=== PATIENT | male | born 1960 | race Caucasian/White ===

== ENCOUNTER 2024-12-18 12:26 | Outpatient (CLI) | payer MEDICARE, SELFPAY ==
--- NOTE | ~2024-12-18 | PE_ITS ---
EXAMINATION: PET_PETPSMAST_PT DATE: 12/18/2024 15:25 INDICATION: Prostate cancer TECHNIQUE: 4.576 mCi of Illucix Ga-68([id number]) was administered i.v. Low dose computed nhan graphy (CT) images were acquired from the base of the brain to the base of the brain to the proximal thighs for attenuation correction and anatomic localization. Positron emission tomography (PET) image s were acquired in the same distribution beginning 83 minutes after injection. Images including fused PET/CT images were reconstructed in axial, coronal, and sagittal planes. Automated exposure control technique was employed. The dose-length product was 1210.15mGy-cm. 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 Typical pattern of symmetric physiologic increased activity in the lacrimal, parotid and submandibular glands as well as along the mucosa of the nasal and oral cavities, pharynx and hypopharynx. No pathologically enlarged cervical lymphadenopathy or suspicious foci of increased uptake in the visualized head or neck. Chest: Mild dependent atelectasis in bilateral lower lobes. Mild emphysema. No suspicious pulmonary nodules, pleural effusion or pneumothorax. Heart size is normal. Small of atherosclerotic coronary artery mike cific location. No pericardial effusion. There is a small localized bulge along the inferolateral mar gin of the ascending portion of the aortic arch at the level of the takeoff of the left subclavian ar tara which extend peripheral to curvilinear atherosclerotic calcification which suggests a penetratin g atherosclerotic ulcer. No pathologically enlarged or PSMA avid thoracic lymphadenopathy. Abdomen/pelvis/proximal thighs: Physiologic renal accumulation and excretion of activity in the kidneys, bladder and along portions o f ureters. Prostatomegaly measuring 5.0 x 3.6 cm. There are couple foci of increased PSA may uptake i n the prostate the larger and more intensely PSM avid with maximal SUV of 29.3 is located slightly an terior and to the left of the center of the inferior prostate and the smaller and less intensely avid with maximal SUV of 27.1 positioned more cephalad at the left posterior margin of the prostate. Norm al degree and slightly heterogenous pattern of increased uptake throughout the liver and spleen witho ut radiologic correlate or dominant PSMA avid lesion. Several small calcified gallstones along the de pendent wall of the normal-appearing gallbladder. The pancreas and bilateral adrenal glands are ondina l. Moderate uptake scattered throughout the bowels with typical duodenal and proximal jejunal predomi nance and without radiologic correlate, also likely physiologic. No other abnormal foci of increased uptake or pathologically enlarged lymphadenopathy in the abdomen, pelvis or proximal thighs. Musculoskeletal: Severe degenerative disc disease at L5-S1. Otherwise mild scattered degenerative skeletal changes. No suspicious lytic, blastic or abnormally PSMA avid bone lesions. IMPRESSION: 1. Couple small regions of increased activity at the enlarged prostate consistent with primary prosta te carcinoma. No evident metastatic disease. 2. 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 3. Penetrating atherosclerotic ulcer along the aortic arch. Consider vascular surgery consultation. 4. Cholelithiasis. Reviewed, dictated and finalized at location A. IMPRESSION: 1. Couple small regions of increased activity at the enlarged prostate consiste nt with primary prostate carcinoma. No evident metastatic disease. 2. Encephalomalacia consistent with old infarct in the left middle cerebral art fidel vascular distribution. 3. Penetrating atherosclerotic ulcer along the aortic arch. Consider vascular s urgery consultation. 4. Cholelithiasis.
--- OUTSIDE RECORDS SUMMARY | 2024-12-18 12:31 | XMS_ITS | Data Portability ---
Author Organization [facility] Elizabeth Francisco Address [address] [place] [address] Care Team Providers Care Log Haul Chain Feeder Name Role Phone JUAN DANIEL CARPIO Primary Care Provider NIKKO Ho Patch Machine Operator DANIELLA GRAY Neurologist [phone] Assessment Encounter Date Assessment Date Assessment LastModified by Organization Details LastModified Time 10/29/2023 10/29/2023 Hypertension stable PE peripheral arterial disease stable dyslipidemia continue with statin he continues with Xarelto for his peripheral arterial disease he was advised to the ill effects of tobacco which were included but not limited to increased tumors of the aerodigestive tract increased incidence of heart attack stroke and cancer that could lead to lead to sudden or chronic medical illness. Will follow-up in 4 months. Will try to get old records and see when he had his last LDCT. No signs or symptoms of depression Not available 10/29/2023 10:44:55 02/25/2024 02/25/2024 overweight instructions the patient is not interested in any smoking cessation strategy. He has been warned again of the ill effects of tobacco which included but not limited to increased tumors of the aerodigestive tract increased incidence of heart attack stroke and cancer that could lead to sudden or chronic medical illness. Secondary prevention of vascular disease discussed. We will follow up with me in 6 months [email or web address] Not available 03/01/2024 12:46:25 09/01/2024 09/01/2024 continue current therapy CBC CMP PSA lipid bone density vitamin-D LD CT healthy lifestyle care instructions warned of the ill effects of tobacco which included but not limited to increase tumors of the aerodigestive tract increase incidence heart attack stroke cancer sudden chronic medical illness or in the face of peripheral arterial disease possible amputation. follow up 4 months [email or web address] Not available 09/06/2024 21:26:51 Plan of Treatment Reminders Order Date Submit Date Provider Last Modified By Organization Details Last Modified Time Details Appointments ANY 15 2024 09:00A Joelle Carpio MD Not available Not available Not available Lab PSA, total, serum or plasma 2024 025 [facility], [address], [place], [address], 09/02/2024 08:24:33 CBC w/ auto diff 2024 025 [facility], [address], [place], [address], 09/02/2024 08:24:32 vitamin D, 25-hydrox y, total, serum 2024 025 [facility], [address], [place], [address], 09/02/2024 08:24:34 lipid panel, serum 2024 025 [facility], [address], [place], [address], 09/02/2024 08:24:29 CMP, serum or plasma 2024 025 [facility], [address], [place], [address], 09/02/2024 08:24:30 Referral None recorded. Procedures None recorded. Surgeries None recorded. Imaging LDCT, chest, for lung cancer screening - Authoriza tion approved# [id number] 7, effective 5 - 5, for procedure code 71628 2024 025 [facility] ([facility]), [address] [place] [address], [address], 09/10/2024 16:14:04 bone density 2024 025 [facility] ([facility]), [address] [place], [address], 09/10/2024 15:25:50 Medication Orders None recorded. Patient TargetsNo targets recorded. Patient Instructions Encounter Date Encounter Id Patient Instructions Last Modified By Organization Details Last Modified Time 02/25/2024 [id number] A healthy lifestyle: care instructions [email or web address] Not available 03/01/2024 12:47:16 09/01/2024 [id number] A healthy lifestyle: care instructions [email or web address] Not available 09/01/2024 10:51:36 Reason for Referral None Reported. Results Created Date Observation Date Name Description Value Unit Range Abnormal Flag Note LastModifiedBy Organization Detail LastModifiedTime 09/01/1909/02/2024 LIPID PANEL cholesterol, total 101 mg/dL 100-19 9 Not Available [facility] ([facility]) [address] [place], [address], 09/02/2024 08:24:29 09/01/19 25 09/02/2024 LIPID PANEL triglyceride s 144 mg/dL 0-149 Not Available [facility] ([facility]) [address] [place], [address], 09/02/2024 08:24:29 09/01/19 25 09/02/2024 LIPID PANEL HDL cholesterol 33 mg/dL >39 below low normal Not Available [facility] ([facility]) [address] [place], [address], 09/02/2024 08:24:29 09/01/19 25 09/02/2024 LIPID PANEL VLDL cholesterol mike 25 mg/dL 5-40 Not Available [facility] ([facility]) [address] [place], [address], 09/02/2024 08:24:29 09/01/19 25 09/02/2024 LIPID PANEL LDL chol calc ([facility]) 43 mg/dL 0-99 Not Available [facility] ([facility]) [address] [place], [address], 09/02/2024 08:24:29 09/01/19 25 09/02/2024 COMP. METAB OLIC PANEL (14) glucose 96 mg/dL 70-99 Not Available [facility] ([facility]) [address] [place], [address], 09/02/2024 08:24:30 09/01/19 25 09/02/2024 COMP. METAB OLIC PANEL (14) BUN 14 mg/dL 8-27 Not Available [facility] ([facility]) [address] [place], [address], 09/02/2024 08:24:30 09/01/19 25 09/02/2024 COMP. METAB OLIC PANEL (14) creatinine 0.94 mg/dL 0.76-1 .27 Not Available [facility] ([facility]) [address] [place], [address], 09/02/2024 08:24:30 09/01/19 25 09/02/2024 COMP. METAB OLIC PANEL (14) eGFR 90 mL/mi n/1.7 3 >59 Not Available [facility] ([facility]) [address] [place], [address], 09/02/2024 08:24:30 09/01/19 25 09/02/2024 COMP. METAB OLIC PANEL (14) BUN/creatini ne ratio 15 10-24 Not Available [facility] ([facility]) [address] [place], [address], 09/02/2024 08:24:30 09/01/19 25 09/02/2024 COMP. METAB OLIC PANEL (14) sodium 140 mmol/ L 134-14 4 Not Available [facility] ([facility]) [address] [place], [address], 09/02/2024 08:24:30 09/01/19 25 09/02/2024 COMP. METAB OLIC PANEL (14) potassium 4.6 mmol/ L 3.5-5. 2 Not Available [facility] ([facility]) [address] [place], [address], 09/02/2024 08:24:30 09/01/19 25 09/02/2024 COMP. METAB OLIC PANEL (14) chloride 101 mmol/ L 96-106 Not Available [facility] ([facility]) [address] [place], [address], 09/02/2024 08:24:30 09/01/19 25 09/02/2024 COMP. METAB OLIC PANEL (14) carbon dioxide, total 24 mmol/ L 20-29 Not Available [facility] ([facility]) [address] [place], [address], 09/02/2024 08:24:30 09/01/19 25 09/02/2024 COMP. METAB OLIC PANEL (14) calcium 9.2 mg/dL 8.6-10 .2 Not Available [facility] ([facility]) [address] [place], [address], 09/02/2024 08:24:30 09/01/19 25 09/02/2024 COMP. METAB OLIC PANEL (14) protein, total 7.1 g/dL 6.0-8. 5 Not Available [facility] ([facility]) [address] [place], [address], 09/02/2024 08:24:30 09/01/19 25 09/02/2024 COMP. METAB OLIC PANEL (14) albumin 4.4 g/dL 3.9-4. 9 Not Available [facility] ([facility]) [address] [place], [address], 09/02/2024 08:24:30 09/01/19 25 09/02/2024 COMP. METAB OLIC PANEL (14) globulin, total 2.7 g/dL 1.5-4. 5 Not Available [facility] ([facility]) [address], [place], [address], 09/02/2024 08:24:30 09/01/19 25 09/02/2024 COMP. METAB OLIC PANEL (14) bilirubin, total 1.2 mg/dL 0.0-1. 2 Not Available [facility] ([facility]) [address], [place], [address], 09/02/2024 08:24:30 09/01/19 25 09/02/2024 COMP. METAB OLIC PANEL (14) alkaline phosphatase 82 IU/L 44-121 Not Available [facility] ([facility]) [address], [place], [address], 09/02/2024 08:24:30 09/01/19 25 09/02/2024 COMP. METAB OLIC PANEL (14) AST (SGOT) 16 IU/L 0-40 Not Available [facility] ([facility]) [address] [place], [address], 09/02/2024 08:24:30 09/01/19 25 09/02/2024 COMP. METAB OLIC PANEL (14) ALT (SGPT) 19 IU/L 0-44 Not Available [facility] ([facility]) [address], [place], [address], 09/02/2024 08:24:30 09/01/19 25 09/01/2024 CBC WITH DIFFE RENTI AL/PL ATELE T WBC 6.6 x10e3 /uL 3.4-10 .8 Not Available [facility] ([facility]) [address], [place], [address], 09/02/2024 08:24:32 09/01/19 25 09/01/2024 CBC WITH DIFFE RENTI AL/PL ATELE T RBC 5.24 x10e6 /uL 4.14-5 .80 Not Available [facility] ([facility]) [address], [place], [address], 09/02/2024 08:24:32 09/01/19 25 09/01/2024 CBC WITH DIFFE RENTI AL/PL ATELE T hemoglobin 16.7 g/dL 13.0-1 7.7 Not Available [facility] ([facility]) [address], [place], [address], 09/02/2024 08:24:32 09/01/19 25 09/01/2024 CBC WITH DIFFE RENTI AL/PL ATELE T hematocrit 48.8 % 37.5-5 1.0 Not Available [facility] ([facility]) [address], [place], [address], 09/02/2024 08:24:32 09/01/19 25 09/01/2024 CBC WITH DIFFE RENTI AL/PL ATELE T MCV 93 fL 79-97 Not Available [facility] ([facility]) [address] [place], [address], 09/02/2024 08:24:32 09/01/19 25 09/01/2024 CBC WITH DIFFE RENTI AL/PL ATELE T MCH 31.9 pg 26.6-3 3.0 Not Available [facility] ([facility]) [address], [place], [address], 09/02/2024 08:24:32 09/01/19 25 09/01/2024 CBC WITH DIFFE RENTI AL/PL ATELE T MCHC 34.2 g/dL 31.5-3 5.7 Not Available [facility] ([facility]) [address] [place], [address], 09/02/2024 08:24:32 09/01/19 25 09/01/2024 CBC WITH DIFFE RENTI AL/PL ATELE T RDW 12.6 % 11.6-1 5.4 Not Available [facility] ([facility]) [address], [place], [address], 09/02/2024 08:24:32 09/01/19 25 09/01/2024 CBC WITH DIFFE RENTI AL/PL ATELE T platelets 460 x10e3 /uL 150-45 0 above high normal Not Available [facility] ([facility]) [address], [place], [address], 09/02/2024 08:24:32 09/01/19 25 09/01/2024 CBC WITH DIFFE RENTI AL/PL ATELE T neutrophils 67 % notest ab. Not Available [facility] ([facility]) [address], [place], [address], 09/02/2024 08:24:32 09/01/19 25 09/01/2024 CBC WITH DIFFE RENTI AL/PL ATELE T lymphs 22 % notest ab. Not Available [facility] ([facility]) [address], [place], [address], 09/02/2024 08:24:32 09/01/19 25 09/01/2024 CBC WITH DIFFE RENTI AL/PL ATELE T monocytes 6 % notest ab. Not Available [facility] ([facility]) [address], [place], [address], 09/02/2024 08:24:32 09/01/19 25 09/01/2024 CBC WITH DIFFE RENTI AL/PL ATELE T eos 2 % notest ab. Not Available [facility] ([facility]) [address], [place], [address], 09/02/2024 08:24:32 09/01/19 25 09/01/2024 CBC WITH DIFFE RENTI AL/PL ATELE T basos 2 % notest ab. Not Available [facility] ([facility]) [address], [place], [address], 09/02/2024 08:24:32 09/01/19 25 09/01/2024 CBC WITH DIFFE RENTI AL/PL ATELE T neutrophils (absolute) 4.5 x10e3 /uL 1.4-7. 0 Not Available [facility] ([facility]) [address], [place], [address], 09/02/2024 08:24:32 09/01/19 25 09/01/2024 CBC WITH DIFFE RENTI AL/PL ATELE T lymphs (absolute) 1.4 x10e3 /uL 0.7-3. 1 Not Available [facility] ([facility]) [address], [place], [address], 09/02/2024 08:24:32 09/01/19 25 09/01/2024 CBC WITH DIFFE RENTI AL/PL ATELE T monocytes(ab solute) 0.4 x10e3 /uL 0.1-0. 9 Not Available [facility] ([facility]) [address] [place], [address], 09/02/2024 08:24:32 09/01/19 25 09/01/2024 CBC WITH DIFFE RENTI AL/PL ATELE T eos (absolute) 0.1 x10e3 /uL 0.0-0. 4 Not Available [facility] ([facility]) [address], [place], [address], 09/02/2024 08:24:32 09/01/19 25 09/01/2024 CBC WITH DIFFE RENTI AL/PL ATELE T baso (absolute) 0.1 x10e3 /uL 0.0-0. 2 Not Available [facility] ([facility]) [address] [place], [address], 09/02/2024 08:24:32 09/01/19 09/01/2024 CBC WITH DIFFE RENTI AL/PL ATELE T immature granulocytes 1 % notest ab. Not Available [facility] ([facility]) [address], [place], [address], 09/02/2024 08:24:32 09/01/19 25 09/01/2024 CBC WITH DIFFE RENTI AL/PL ATELE T immature grans (abs) 0.0 x10e3 /uL 0.0-0. 1 Not Available [facility] ([facility]) [address], [place], [address], 09/02/2024 08:24:32 09/01/1909/02/2024 PROST ATE-S PECIF IC AG prostate specific Ag 5.6 NG/mL 0.0-4. 0 above high normal Dyllan ECLIA metho dolog y. Accor ding to the Ameri can Urolo gical Assoc iatio n, Serum PSA shoul d decre ase and remai n at undet ectab le level s after radic al prost atect manuel. The AUA defin es bioch emica l recur rence as an initi al PSA value 0.2 ng/mL or great er follo wed by a subse quent confi rmato ry PSA value 0.2 ng/mL or great er. Value s obtai remy with diffe rent assay metho ds or kits canno t be used inter mckeon eajimenezy . Resul ts canno t be inter prete d as absol coquille evide nce of the prese nce or absen ce of layo batista se. Not Available [facility] ([facility]) [address], [place], [address], 09/02/2024 08:24:33 09/01/1909/02/2024 VITAM IN D, 25-HY DROXY vitamin D, 25-hydroxy 24.7 NG/mL 30.0-1 00.0 below low normal Vitam in D defic iency has been defin ed by the Insti tute of Medic ine and an Endoc rine Socie ty pract ice guide line as a level of serum 25-OH vitam in D less than 20 ng/mL (1,2) . The Endoc rine Socie ty went on to furth er defin e vitam in D insuf ficie ncy as a level betwe en 21 and 29 ng/mL (2). 1. IOM (Inst itute of Medic ine). 2010. Dieta ry refer ence intak es for calci um and D. Merary whitfield [place]: The [facility] . 2. Alicia heaton MF, Russ goldsmith [place], Carter off-F errar i MCNEIL, et al. Evalu ation , treat ment, and preve ntion of vitam in D defic iency : an Endoc rine Socie ty clini mike pract ice guide line. JCEM. 2010; 96(7) :1911 -30. Not Available [facility] ([facility]) [address], [place], [address], 09/02/2024 08:24:34 10/30/19 25 10/29/2024 COLOG UARD cologuard result reportable NEGATI VE negati ve normal NEGAT DEVORAH TEST RESUL T. A negat devorah Colog uard resul t indic ates a low likel ihood that a color ectal cance r (CRC) or advan jackson adeno ma (shamika omato us polyp s with more advan jackson pre-m align ant featu res) is prese nt. The chanc e that a perso n with a negat devorah Colog uard test has a color ectal cance r is less than 1 in 1500 (nega tive predi ctive value >99.9 %) or has an advan jackson adeno ma is less than 5.3% (nega tive predi ctive value 94.7% ). These data are based on a prosp ectiv e cross -sect ional study of 10,00 0 indiv idual s at [place] [facility] risk for color ectal cance r who were scree remy with both Colog uard and colon oscop y. (Ping Solis. et al, N Engl J Med 2014; 370(1 4):12 86-12 97) The ondina l value (refe rence range ) for this assay is negat devorah. COLOG UARD RE-SC REENI NG RECOM MENDA TION: Perio dic color ectal cance r scree karishma is an impor tant part of preve ntive healt hcare for asymp tomat ic indiv idual s at [facility] for color ectal cance r. Follo wing a negat devorah Colog uard resul t, the Ameri can Cance r Socie ty and U.S. Multi -Soci ety Task Force scree karishma guide lines recom mend a Colog uard re-sc reeni ng inter jeb of 3 years . Refer ences : Ameri can Cance r Socie ty Guide line for Color ectal Cance r Scree karishma: https ://antonio w.can cer.o rg/ca ncer/ colon -rect al-ca ncer/ detec tion- diagn osis- stagi ng/ac s-rec ommen datio ns.ht ml.; Guillaume DUARTE, Aditya parmar CR, Doug CruzK, Color ectal Cance r Scree karishma: Recom menda tions for Physi cians and Patie nts from the U.S. Multi -Soci ety Task Force on Color ectal Cance r Scree karishma , Anjum claudio y 2017; 112:1 016-1 030. TEST DESCR IPTIO N: Carl site algor ithmi c meme sis of stool DNA-b iomar kers with hemog lobin immun oassa y. Quant itati ve value s of indiv idual bioma rkers are not repor table and are not assoc iated with indiv idual bioma rker resul t refer ence range s. Colog uard is inten ded for color ectal cance r scree karishma of adult s of eithe r sex, 45 years or older , who are at [facility] for color ectal cance r (CRC) . Colog uard has been appro arielle for use by the U.S. FDA. The perfo rmanc e of Colog uard was estab lishe d in a cross secti onal study of avera ge-ri sk adult s aged 50-84 . Colog uard perfo rmanc e in patie nts ages 45 to 49 years was estim ated by sub-g roup meme sis of near- age group s. Colon oscop ies perfo rmed for a posit devorah resul t may find as the most clini abby signi fican t lesio n: color ectal cance r [4.0% ], advan jackson adeno ma (incl uding sessi le yo geovanna polyp s great er than or equal to 1cm diame ter) [20%] or non- advan jackson adeno ma [31%] ; or no color ectal neopl valentin [45%] . These estim ates are deriv ed from a prosp ectiv e cross -sect ional scree karishma study of 0 indiv idual s at [facility] risk for color ectal cance r who were scree remy with both Colog uard and colon oscop y. (Ping Ward et al, N Engl J Med 2014; 370(1 4):12 86-12 97.) Colog uard may produ ce a false negat devorah or false posit devorah resul t (no color ectal cance r or preca ncero us polyp prese nt at colon oscop y follo w up). A negat devorah Colog uard test resul t does not guara ntee the absen ce of CRC or advan jackson adeno ma (pre- cance r). The curre nt Colog uard scree karishma inter jeb is every 3 years . (Amer ican Cance r Socie ty and U.S. Multi -Soci ety Task Force ). Colog uard perfo rmanc e data in a 0 patie nt pivot al study using colon oscop y as the refer ence metho d can be acces sed at the follo wing locat ion: www.e xactl abs.c om/re destiny . Addit ional descr iptio n of the Colog uard test proce ss, warni ngs and preca ution s can be found at www.c phong wilson.c om. Not Available [employer] (Cologuard Orders Only) [address], [place], [address], 11/02/2024 07:01:06 01/30/20 24 01/30/2024 US, colby x, irenet id arter y No observ ation record ed. [facility] [address], [place], [address], 01/31/2024 12:19:47 09/10/19 25 09/10/2024 bone densi ty No observ ation record ed. [facility] [address] [place], [address], 09/14/2024 17:09:03 09/10/19 25 09/10/2024 LDCT, chest , for lung cance r scree karishma No observ ation record ed. [facility] [address] [place], [address], 09/14/2024 17:16:19 12/02/19 25 11/30/2024 trans -thor acic echoc ardio gram (TTE) (PROC ) No observ ation record ed. [email or web address] [facility] [address], [place], [address], 12/02/2024 11:09:26 Result Notes None recorded. Problems Name Problem SNOMED Code Status Onset Date Resolution Date Notes Provider Name and Address Organization Details Recorded Time Overweight 116266565 Active 2023 Juan Daniel Carpio MD Attn: Joby gonzalez,[address] [facility], [place], [address], [place] - [facility] 4 12:44:10 Hyperlipide shailesh 88196271 Active 2023 Juan Daniel Carpio MD Attn: Joby gonzalez,[address] [facility], [place], [address], [place] [facility] 4 12:44:10 Seizure disorder 911808343 Active 2023 Juan Daniel Carpio MD Attn: Joby gonzalez[address] [facility], [place], [address], [place] [facility] 4 12:44:11 History of cerebrovasc ular accident 024284803 Active 2023 Juan Daniel Carpio MD Attn: Joby gonzalez,[address] [facility], [place], [address], [place] [facility] 4 12:44:14 Nicotine dependence 53621633 Active 2023 Juan Daniel Carpio MD Attn: Joby gonzalez,[address] [facility], [place], [address], [place] [facility] 4 12:44:16 Peripheral arterial occlusive disease 754927710 Active 2023 Juan Daniel Carpio MD Attn: Joby gonzalez,[address] [facility], [place], [address], [place] [facility] 4 12:44:26 Colonoscopy declined 9039430254406 00 Active 2023 Juan Daniel Carpio MD Attn: Joby gonzalez,[address] [facility], [place], [address], [place] [facility] 4 12:46:20 Long-term drug therapy Active 2024 Alison El MA null, [place] - [facility] 5 10:16:47 Body mass index 25-29 - overweight 764313208 Active 2024 Alison El [place] null, [place] [facility] 5 10:16:53 Problem Notes None recorded. Procedures Surgical History Date Name Laterality Status Provider Name and Address Organization Details Recorded Time direct angiography of left femoral artery completed Helene Odell [place] - [place] 10/29/2023 09:56:51 Angioplasty With Stent completed Helene Odell [place] 10/29/2023 09:57:03 Imaging Results Imaging Date Name Status LastModified by Organization Details LastModified Time 01/30/2024 US, duplex, carotid artery completed [facility] [address], [place], [address], 01/31/2024 12:19:47 09/10/2024 bone density completed [facility] [address] [place], [address], 09/14/2024 17:09:03 09/10/2024 LDCT, chest, for lung cancer screening completed [facility] [address] [place], [address], 09/14/2024 17:16:19 11/30/2024 trans-thoracic echocardiogram (TTE) (PROC) completed [email or web address] [facility] [address], [place], [address], 12/02/2024 11:09:26 Procedure Notes None recorded. Medical Equipment None Reported. Allergies Allergen ID Allergen Name Allergen Category Reaction Reaction Severity Criticality Documentation Date Start Date Code Code System Note Provider Name and Address Organization Details Recorded Time 008446 Product containin g penicilli n (product) medicatio n Not available Not available Not available 10/29/2023 [id number] SNOMED child beaulieu aller gy, react ion unkno wn, cb-rm a Helene Odell MA null, [place] - [facility] 09:52:12 Medications Name Sig Start Date Stop Date Status Note LastModified by Organization Details LastModified Time losartan 50 mg tablet TAKE 1 TABLET BY MOUTH TWICE A DAY active Not Available Not Available No t Available atorvastati n 40 mg tablet TAKE 1 TABLET BY MOUTH EVERY DAY 2024 active Not Available Not Available Not Avai lable clopidogrel 75 mg tablet TAKE 1 TABLET BY MOUTH EVERY DAY active Not Available Not Available No t Available tramadol 50 mg tablet TAKE 1 TABLET 3 TIMES A DAY BY ORAL ROUTE NEEDED. 09/01 completed Not Available Not Available Not Available diflorasone 0.05 % topical cream 09/01 completed Not Available Not Available Not Available Longs Adult Low Strength ASA 81 mg tablet,danny yed release Take 1 tablet every day by oral route. active Not Available Not Available No t Available levetiracet am 750 mg tablet TAKE 1 (ONE) TABLET BY MOUTH 2 TIMES DAILY active Not Available Not Available No t Available gabapentin 100 mg capsule TAKE 1 CAP NIGHTLY X7 DAYS, 1 CAP TWICE DAILY X7 DAYS THEN 1 CAP 3 TIMES DAILY 10/28 completed Not Available Not Available Not Available ergocalcife rol (vitamin D2) 1,250 mcg (50,000 unit) capsule TAKE 1 CAPSULE EVERY WEEK BY ORAL ROUTE. active Not Available Not Available No t Available methylpredn isolone 4 mg tablets in a dose pack TAKE 6 TABLETS ON DAY 1 DIRECTED ON PACKAGE AND DECREASE BY 1 TAB EACH DAY FOR A TOTAL OF 6 DAYS 10/28 completed Not Available Not Available Not Available duloxetine 30 mg capsule,del ayed release TAKE 1 CAPSULE BY MOUTH EVERY DAY FOR 90 DAYS 10/28 completed Not Available Not Available Not Available diclofenac 1 % topical gel APPLY GEL TO THE TOPS AND BOTTOMS OF THE RIGHT FOOT UP TO 4 TIMES A DAY NEEDED 09/01 completed Not Available Not Available Not Available Xarelto 2.5 mg tablet TAKE 1 TABLET BY MOUTH TWICE A DAY 09/01 completed Not Available Not Available Not Available Vitals Date Recorded Body height Body mass index (BMI) Body weight Oxygen saturation Oxygen saturation in Arterial blood by Pulse oximetry Heart rate Systolic blood pressure Diastolic blood pressure Systolic blood pressure Diastolic blood pressure Provider Name and Address Organization Details Last Updated DateTime 4 182.88 cm 28.9 kg/m2 04891.1 7 g 97 % 97 % 84 /min 137 mm[Hg] 94 mm[Hg] 105 mm[Hg] 88 mm[Hg] Helene Odell [place] - [facility] 4 10:06:55 Date Recorded Body height Body mass index (BMI) Body weight Heart rate Oxygen saturation Oxygen saturation in Arterial blood by Pulse oximetry Systolic blood pressure Diastolic blood pressure Provider Name and Address Organization Details Last Updated DateTime 4 182.88 cm 29.1 kg/m2 27998 g 72 /min 99 % 99 % 110 mm[Hg] 68 mm[Hg] Arlene Coello [place] - [facility] 4 10:06:13 Date Recorded Body height Body mass index (BMI) Body weight Heart rate Oxygen saturation Oxygen saturation in Arterial blood by Pulse oximetry Provider Name and Address Organization Details Last Updated DateTime 5 182.88 cm 29.3 kg/m2 87334.2 3 g 70 /min 99 % 99 % Saira BRAD Haynes [facility] 09:58:22 Date Recorded Systolic blood pressure Diastolic blood pressure Provider Name and Address Organization Details Last Updated DateTime 09/01/2024 120 mm[Hg] 64 mm[Hg] Arlene BRAD Coello [facility] 09/01/2024 10:04:27 Social History Question Answer Notes LastModified by Organizat ion Details LastModified Time Tobacco Smoking Status Current Every Day Smoker Helene Odell [place] null, [place] - [facility] 10/29/2023 09:55:21 Do You Have An Advance Directive? No Information not available 10/29/2023 What Is Your Level Of Alcohol Consumption? Occasional Information not available 10/29/2023 What Is Your Level Of Caffeine Consumption? Heavy TEA Information not available 10/29/2023 In The 14 Days Before Symptom Onset, Have You Had Close Contact With A Laboratory-confir med COVID-19 While That Case Was Ill? No Information not available 02/25/2024 In The 14 Days Before Symptom Onset, Have You Had Close Contact With A Person Who Is Under Investigation For COVID-19 While That Person Was Ill? No Information not available 02/25/2024 Have You Been To An Area Known To Be High Risk For COVID-19? No Information not available 02/25/2024 Are You Currently Employed? No Information not available 10/29/2023 Are You Deaf Or Do You Have Serious Difficulty Hearing? No Information not available 10/29/2023 What Type Of Diet Are You Following? REGULAR Information not available 10/29/2023 What Was The Date Of Your Most Recent Tobacco Screening? 09/01/2024 Information not available 09/01/2024 What Is Your Relationship Status? Information not available 10/29/2023 Do You Use Your Seat Belt Or Car Seat Routinely? Yes Information not available 10/29/2023 Do You Have Smoke And Carbon Monoxide Detectors In Your Home? Yes Information not available 10/29/2023 At What Age Did You Start Smoking Tobacco? 23 Information not available 10/29/2023 How Much Tobacco Do You Smoke? 1 PPD Information not available 10/29/2023 Do You Feel Stressed (tense, Restless, Nervous, Or Anxious, Or Unable To Sleep At Night)? [id number] Information not available 02/25/2024 Do You Use Any Illicit Or Recreational Drugs? No Information not available 10/29/2023 Do You Use Sunscreen Routinely? Yes Information not available 10/29/2023 Has Tobacco Cessation Counseling Been Provided? Yes Information not available 10/29/2023 On What Date Was Tobacco Cessation Counseling Provided? 09/01/2024 Information not available 09/01/2024 How Many Years Have You Smoked Tobacco? 40 Information not available 10/29/2023 Do You Or Have You Ever Used Any Other Forms Of Tobacco Or Nicotine? No Information not available 10/29/2023 Sex: Male Functional Status Question Answer Note LastModified by Organizat ion Details LastModified Time Are you able to care for yourself? Yes Information not available 10/29/2023 What is your exercise level? Occasional Information not available 10/29/2023 Mental Status None recorded. Family History Relationship Description Onset Age of this Age Resolved Age Notes LastModified by Organization Details LastModified Time Father Heart disease [email or web address] Not available 2024 10:43:09 Mother Heart disease [email or web address] Not available 2024 10:43:09 Medical History Condition Response Coronary Artery Disease Y Other N High Blood Pressure Y Atrial Fibrillation N Kidney or Bladder Problems N Thyroid Problems N GI Problems N Depression N COPD N Blood Clots Y Have you had a mammogram in the last yea r? N Skin Problems N Anemia N Heart Attack (VT) N Anxiety Disorder N Diabetes N Muscle, Joint, or Bone Problems N Seizures/Epilepsy Y Have you had a colonoscopy in the last 1 0 years? N Acid Reflux (GERD) N Cancer Y Stroke Y Asthma N Allergies Y Have you had a PSA blood test in the las t year? N High Cholesterol Y Hepatitis N Liver Disease N Headaches N Heart Failure N Osteoporosis N Immunizations Vaccine Type Date Status Note Provider Nam e and Address Organization Details Recorded Time Influenza, split virus, quadrivalent, preservative 9 completed Robina [place] null, [place] - [facility] 08/27/2024 10:38:45 Influenza, split virus, quadrivalent, preservative 8 completed [place] [facility] 08/27/2024 10:38:45 Influenza, MDCK, quadrivalent, PF 2 completed [place] [facility] 08/27/2024 10:38:45 COVID-19, mRNA, LNP-S, PF, 100 mcg/0.5mL dose or 50 mcg/0.25mL dose 1 completed [place] [facility] 08/27/2024 10:38:45 COVID-19, mRNA, LNP-S, PF, 100 mcg/0.5mL dose or 50 mcg/0.25mL dose 1 completed [place] [facility] 08/27/2024 10:38:46 COVID-19, mRNA, LNP-S, PF, 100 mcg/0.5mL dose or 50 mcg/0.25mL dose 1 completed [place] [facility] 08/27/2024 10:38:46 COVID-19, mRNA, LNP-S, bivalent, PF, 30 mcg/0.3 mL dose 2 completed [place] [facility] 08/27/2024 10:38:46 COVID-19, mRNA, LNP-S, PF, senait-sucrose, 30 mcg/0.3 mL 3 completed [place] [facility] 08/27/2024 10:38:46 Influenza, split virus, trivalent, preservative 4 completed [place] [facility] 08/27/2024 10:38:46 Influenza, split virus, trivalent, PF 3 completed [place] [facility] 08/27/2024 10:38:46 Influenza, split virus, quadrivalent, PF 8 completed Robina Palma null, [place] - [facility] 08/27/2024 10:38:46 Influenza, split virus, quadrivalent, PF 3 completed [place] [facility] 08/27/2024 10:38:46 Influenza, split virus, quadrivalent, PF 1 completed Robina Palma null, [place] - [facility] 08/27/2024 10:38:46 Past Encounters Encounter ID Performer Location Encounter Start Date Encounter Closed Date Diagnosis/Indication Diagnosis SNOMED-CT Code Diagnosis ICD10 Code Diagnosis Note [id number] Juan Daniel Carpio MD [facility] (Adult Med) [address] [place] [phone] 0 10/29/2023 09:43:54 10/29/2023 10:34:27 Essential hypertension 22999218 I10 Hyperlipidemia 70336115 E78.5 History of cerebrovascular accident 059671942 Z86.73 Peripheral arterial occlusive disease 707224587 I73.9 Seizure disorder 0594177 02 G40.909 Tobacco user 202285454 Z 72.0 [id number] Juan Daniel Carpio MD [facility] (Adult Med) [address] [place] [address] [phone] 02/25/2024 09:56:13 02/25/2024 10:47:11 Overweight 676694621 E66.3 Hyperlipidemia 39717870 E78.5 Seizure disorder 6881826 02 G40.909 History of cerebrovascular accident 243074212 Z86.73 Nicotine dependence 5629 4008 F17.200 Peripheral arterial occlusive disease 940940457 I73.9 Colonoscopy declined 853 1986281 22449 Z53.20 [id number] Juan Daniel Carpio MD [facility] (Adult Med) [address] [place] [address] [id number] 0 09/01/2024 09:42:56 09/01/2024 10:18:43 Body mass index 25-29 - overweight 013200876 Z68.29 Overweight 429573965 E66 .3 Hyperlipidemia 68324118 E78.5 Long-term drug therapy 234747718 Z79.899 Screening for malignant neoplasm of prostate 812780127 Z12.5 Nicotine dependence 5629 4008 F17.200 History of cerebrovascular accident 150658495 Z86.73 Peripheral arterial occlusive disease 717552262 I73.9 Seizure disorder 8611277 02 G40.909 Pneumococc al vaccination declined 600190941 Z28.21 Health Concerns Section Related Observation LastModified by Organization Detai ls LastModified Time None Recorded Concern Status LastModified by Organization Details LastModified Time None Recorded Advance Directives Directive N: Payers Encounter Date Sequence Insurance Name Policy Number Policy Muñoz Covered Member ID Muñoz Member ID Guarantor Name 10/29/2023 1 [employer] (MEDICARE REPLACEMENT PPO) [id number] Ramesh Krause Tovar [id number] Ramesh Tovar 10/29/2023 1 [place] Ramesh Krause Tovar [id number] Ramesh Tovar 02/25/2024 1 [employer] (MEDICARE REPLACEMENT PPO) [id number] Ramesh Krause Guy [id number] Rameshcase Tovar 02/25/2024 1 [place] Ramesh Krause Guy [id number] Ramesh Tovar 09/01/2024 1 [employer] (MEDICARE REPLACEMENT PPO) [id number] Ramesh Tovra [id number] Ramesh Tovar Notes Date Note Type Note Provider Name and Address Organization Details Recorded Time 10/29/2023 text/html Hypertension no headache or dizziness. Hyperlipidemia takes medication tries to watch his diet. History of stroke dysarthria and some right hemiparesis peripheral arterial occlusive disease he does have some pain in his right leg still but he follows with interventional cardiology. Seizure disorder there has not been any seizures tobacco user half a pack to a pack a day smoker Juan Daniel Carpio MD Attn: Accounting, [address] [place], [address], [facility] 10/29/2023 10:45:24 02/25/2024 text/html Hypertension no headache or dizziness. Hyperlipidemia takes medication tries to watch his diet. History of stroke dysarthria and some right hemiparesis peripheral arterial occlusive disease he does have some pain in his right leg still but he follows with interventional cardiology. Seizure disorder there has not been any seizures tobacco user half a pack to a pack a day smoker Juan Daniel Carpio MD Attn: Accounting, [address] [place], [address], [facility] 03/01/2024 12:47:18 09/01/2024 text/html Hypertension no headache or dizziness. Hyperlipidemia takes medication tries to watch his diet. History of stroke dysarthria and some right hemiparesis peripheral arterial occlusive disease he does have some pain in his right leg still but he follows with interventional cardiology. Seizure disorder there has not been any seizures tobacco user half a pack to a pack a day smoker Juan Daniel Carpio MD Attn: Accounting[address] , [place], [address], [facility] 09/06/2024 21:27:16
--- OUTSIDE RECORDS SUMMARY | 2024-12-18 12:32 | XMS_ITS | Data Portability ---
Author Organization [facility] [place], Main Office Address [address] [place] [address] Assessment Encounter Date Assessment Date Assessment LastModified by Organization Details LastModified Time 12/05/2022 12/05/2022 X-ray inflammato ry markers uric acid tramadol for pain further recommendations pending results [email or web address] Not available 12/16/2022 15:00:23 01/02/2023 01/02/2023 Keep follow-up dismissed for this problem [email or web address] Not available 01/02/2023 23:10:59 05/15/2023 05/15/2023 Seizures stable dyslipidemia reinforced diet as well as meds tobacco cessation highly recommended but he is not interested in any strategy follow-up 4 months Not available 05/15/2023 21:33:19 09/04/2023 09/04/2023 Seizure activity continue current therapy advised strongly to quit smoking follow-up in 4 months [email or web address] Not available 09/11/2023 08:35:20 Plan of Treatment Reminders Order Date Submit Date Provider Last Modified By Organization Details Last Modified Time Details Appointments None recorded. Lab PSA, serum or plasma 2022 023 [facility] (Lab), [address] [place], [address], 09:38:10 CBC w/ auto diff 2022 023 [facility] (Lab), [address] [place], [address], 18:28:40 CMP, serum or plasma 2022 023 [facility] (Lab), [address] [place], [address], 18:45:34 lipid panel, serum 2022 023 [facility] (Lab), [address] [facility] [place], [address], 18:45:29 uric acid, serum or plasma 2022 023 [facility], [address], [place], [address], 19:35:40 C-reactive protein, quantitativ e, serum or plasma 2022 023 [facility], [address], [place], [address], 11:04:35 ESR (erythrocyt e sedimentati on rate), blood 2022 023 [facility], [address], [place], [address], 18:48:51 CMP, serum or plasma 2022 023 [facility], [address], [place], [address], 19:35:58 CBC w/ auto diff 2022 023 [facility], [address], [place], [address], 17:59:47 Referral None recorded. Procedures None recorded. Surgeries None recorded. Imaging XR, foot 2022 023 [facility] (Imaging), [address] [place], [address], 17:32:25 Medication Orders None recorded. Patient TargetsNo targets recorded. Patient InstructionsNo instructions recorded. Reason for Referral None Reported. Results Created Date Observation Date Name Description Value Unit Range Abnormal Flag Note LastModifiedBy Organization Detail LastModifiedTime 12/06/19 23 12/05/2022 CBC/C OMPLE TE BLD COUNT W/DIF F white blood cells 8.2 x10'3 /uL 4.2-10 .8 Not Available [facility] (Lab) [address] [place], [address], 12/05/2022 17:59:47 12/06/19 23 12/05/2022 CBC/C OMPLE TE BLD COUNT W/DIF F red blood cells 5.19 x10'6 /uL 4.10-5 .80 Not Available [facility] (Lab) [address] [place], [address], 12/05/2022 17:59:47 12/06/19 23 12/05/2022 CBC/C OMPLE TE BLD COUNT W/DIF F hemoglobin 16.7 g/dL 13.2-1 7.0 Not Available [facility] (Lab) [address] [place], [address], 12/05/2022 17:59:47 12/06/19 23 12/05/2022 CBC/C OMPLE TE BLD COUNT W/DIF F hematocrit 48.8 % 39.3-5 0.0 Not Available [facility] (Lab) [address] [place], [address], 12/05/2022 17:59:47 12/06/19 23 12/05/2022 CBC/C OMPLE TE BLD COUNT W/DIF F mean red cell volume 94.0 fL 80.0-9 7.0 Not Available [facility] (Lab) [address] [place], [address], 12/05/2022 17:59:47 12/06/19 23 12/05/2022 CBC/C OMPLE TE BLD COUNT W/DIF F mean red cell hemoglobin 32.2 pg 27.0-3 3.0 Not Available [facility] (Lab) [address] [place], [address], 12/05/2022 17:59:47 12/06/19 23 12/05/2022 CBC/C OMPLE TE BLD COUNT W/DIF F mean RBC HGB concentratio n 34.2 g/dL 31.0-3 6.0 Not Available [facility] (Lab) [address] [place], [address], 12/05/2022 17:59:47 12/06/19 23 12/05/2022 CBC/C OMPLE TE BLD COUNT W/DIF F red cell distribution width 13.5 % 11.8-1 5.5 Not Available [facility] (Lab) [address] [place], [address], 12/05/2022 17:59:47 12/06/19 23 12/05/2022 CBC/C OMPLE TE BLD COUNT W/DIF F platelets 302 x10'3 /uL 150-40 0 Not Available [facility] (Lab) [address] [place], [address], 12/05/2022 17:59:47 12/06/19 23 12/05/2022 CBC/C OMPLE TE BLD COUNT W/DIF F mean platelet volume 10.7 fL 9.0-12 .4 Not Available [facility] (Lab) [address] [place], [address], 12/05/2022 17:59:47 12/06/19 23 12/05/2022 CBC/C OMPLE TE BLD COUNT W/DIF F neutrophils 70.4 % 39.0-7 2.0 Not Available [facility] (Lab) [address] [place], [address], 12/05/2022 17:59:47 12/06/19 23 12/05/2022 CBC/C OMPLE TE BLD COUNT W/DIF F lymphocytes 19.9 % 16.0-4 7.0 Not Available [facility] (Lab) [address] [place], [address], 12/05/2022 17:59:47 12/06/19 23 12/05/2022 CBC/C OMPLE TE BLD COUNT W/DIF F monocytes 7.9 % 5.0-12 .0 Not Available [facility] (Lab) [address] [place], [address], 12/05/2022 17:59:47 12/06/19 23 12/05/2022 CBC/C OMPLE TE BLD COUNT W/DIF F eosinophils 0.7 % 1.0-7. 0 low Not Available [facility] (Lab) [address] [place], [address], 12/05/2022 17:59:47 12/06/19 23 12/05/2022 CBC/C OMPLE TE BLD COUNT W/DIF F basophils 0.7 % 0.0-2. 0 Not Available [facility] (Lab) [address] [place], [address], 12/05/2022 17:59:47 12/06/19 23 12/05/2022 CBC/C OMPLE TE BLD COUNT W/DIF F immature granulocytes 0.4 % 0.00-0 .50 Not Available [facility] (Lab) [address] [place], [address], 12/05/2022 17:59:47 12/06/19 23 12/05/2022 CBC/C OMPLE TE BLD COUNT W/DIF F neutrophils, absolute count 5.76 x10'3 /uL 1.5-8. 0 Not Available [facility] (Lab) [address] [place], [address], 12/05/2022 17:59:47 12/06/19 23 12/05/2022 CBC/C OMPLE TE BLD COUNT W/DIF F lymphocytes, absolute count 1.63 x10'3 /uL 1.07-3 .43 Not Available [facility] (Lab) [address] [place], [address], 12/05/2022 17:59:47 12/06/19 23 12/05/2022 CBC/C OMPLE TE BLD COUNT W/DIF F monocytes, absolute count 0.65 x10'3 /uL 0.29-0 .99 Not Available [facility] (Lab) [address] [place], [address], 12/05/2022 17:59:47 12/06/19 23 12/05/2022 CBC/C OMPLE TE BLD COUNT W/DIF F eosinophils, absolute count 0.06 x10'3 /uL 0.02-0 .53 Not Available [facility] (Lab) [address] [place], [address], 12/05/2022 17:59:47 12/06/19 23 12/05/2022 CBC/C OMPLE TE BLD COUNT W/DIF F basophils, absolute count 0.06 x10'3 /uL 0.01-0 .08 Not Available [facility] (Lab) [address] [place], [address], 12/05/2022 17:59:47 12/06/19 23 12/05/2022 CBC/C OMPLE TE BLD COUNT W/DIF F immature granulocytes ,absolute 0.03 x10'3 /uL 0.00-0 .05 Not Available [facility] (Lab) [address] [place], [address], 12/05/2022 17:59:47 12/06/19 23 12/05/2022 CBC/C OMPLE TE BLD COUNT W/DIF F nucleated red blood cells 0.0 % -0 Not Available [facility] (Lab) [address] [place], [address], 12/05/2022 17:59:47 12/06/19 23 12/05/2022 CBC/C OMPLE TE BLD COUNT W/DIF F NRBC# 0.00 x10'3 /uL Not Available [facility] (Lab) [address] [place], [address], 12/05/2022 17:59:47 12/06/19 23 12/05/2022 SEDIM ENTAT ION RATE erythrocyte sedimentatio n rate 5 mm/HR 0-20 Not Available [facility] (Lab) [address] [place], [address], 12/05/2022 18:48:51 12/06/19 23 12/05/2022 C REACT DEVORAH PROTE IN,UL TRA SENS C-reactive protein 0.25 mg/dL 0.0-0. 5 Not Available [facility] (Lab) [address] [place], [address], 12/05/2022 19:28:50 12/06/1912/05/2022 URIC ACID SERUM uric acid 6.1 mg/dL 3.5-8. 5 Not Available [facility] (Lab) [address] [place], [address], 12/05/2022 19:35:40 12/06/19 23 12/05/2022 COMPR EHENS DEVORAH METAB OLIC PANEL sodium 141 mmol/ L 137-14 5 Not Available [facility] (Lab) [address] [place], [address], 12/05/2022 19:35:58 12/06/19 23 12/05/2022 COMPR EHENS DEVORAH METAB OLIC PANEL potassium 4.7 mmol/ L 3.5-5. 1 Not Available [facility] (Lab) [address] [place], [address], 12/05/2022 19:35:58 12/06/19 23 12/05/2022 COMPR EHENS DEVORAH METAB OLIC PANEL chloride 104 mmol/ L 98-107 Not Available [facility] (Lab) [address] [place], [address], 12/05/2022 19:35:58 12/06/19 23 12/05/2022 COMPR EHENS DEVORAH METAB OLIC PANEL carbon dioxide 27 mmol/ L 22-30 Not Available [facility] (Lab) [address] [place], [address], 12/05/2022 19:35:58 12/06/19 23 12/05/2022 COMPR EHENS DEVORAH METAB OLIC PANEL anion gap 14.7 mmol/ L 14-22 Not Available [facility] (Lab) [address] [place], [address], 12/05/2022 19:35:58 12/06/19 23 12/05/2022 COMPR EHENS DEVORAH METAB OLIC PANEL glucose 97 mg/dL 70-99 Not Available [facility] (Lab) [address] [place], [address], 12/05/2022 19:35:58 12/06/19 23 12/05/2022 COMPR EHENS DEVORAH METAB OLIC PANEL BUN 11 mg/dL 8-19 Not Available [facility] (Lab) [address] [place], [address], 12/05/2022 19:35:58 12/06/19 23 12/05/2022 COMPR EHENS DEVORAH METAB OLIC PANEL creatinine 0.82 mg/dL 0.66-1 .25 Not Available [facility] (Lab) [address] [place], [address], 12/05/2022 19:35:58 12/06/19 23 12/05/2022 COMPR EHENS DEVORAH METAB OLIC PANEL GFR >60 Refer ence Range : Talala ge GFR Healt hy Adult : >60 mL/mi n/1.7 3 m2 Chron ic Kidne y Disea se: 15-60 mL/mi n/1.7 3 m2 Kidne y Failu re: <15/m L/min /1.73 m2 www.n iddk. nih.g ov The MDRD study equat ion has not been valid ated in child tye <18 years of age; pregn ant women ; the elder ly >85 years of age; or in some racia l or ethni c subgr oups, such as Hispa nics. Outsi de the valid ated wesley eters , estim ated GFR is less accur ate, requi ring clini mike judgm ent on a case- by-ca se basis . Clini mike inter preta tion for other races and ages must be made by the clini sander. The MDRD study equat ion has not been valid ated for the evalu ation of serum creat inine relat ed to nutri andrea l statu s or medic ation usage . For perso ns <18 years of age, a pedia tric GFR calcu lator is avail able on the [facility] websi te: https :[email or web address] lin.jeremiah rg/pr ofess ional s/kdo qi/gf r_cal culat or Not Available [facility] (Lab) [address] [place], [address], 12/05/2022 19:35:58 12/06/19 23 12/05/2022 COMPR EHENS DEVORAH METAB OLIC PANEL alkaline phosphatase 71 U/L 38-126 Not Available [facility] (Lab) [address] [place], [address], 12/05/2022 19:35:58 12/06/19 23 12/05/2022 COMPR EHENS DEVORAH METAB OLIC PANEL alanine aminotransfe rase 26 U/L 0-50 Not Available [facility] (Lab) [address] [place], [address], 12/05/2022 19:35:58 12/06/19 23 12/05/2022 COMPR EHENS DEVORAH METAB OLIC PANEL aspartate aminotransfe rase 27 U/L 15-46 Not Available [facility] (Lab) [address] [place], [address], 12/05/2022 19:35:58 12/06/19 23 12/05/2022 COMPR EHENS DEVORAH METAB OLIC PANEL bilirubin, total 1.80 mg/dL 0.20-1 .30 high Not Available [facility] (Lab) [address] [place], [address], 12/05/2022 19:35:58 12/06/19 23 12/05/2022 COMPR EHENS DEVORAH METAB OLIC PANEL calcium 9.4 mg/dL 8.4-10 .2 Not Available [facility] (Lab) [address] [place], [address], 12/05/2022 19:35:58 12/06/19 23 12/05/2022 COMPR EHENS DEVORAH METAB OLIC PANEL total protein 8.2 g/dL 6.3-8. 2 Not Available [facility] (Lab) [address] [place], [address], 12/05/2022 19:35:58 12/06/19 23 12/05/2022 COMPR EHENS DEVORAH METAB OLIC PANEL albumin 5.0 g/dL 3.0-4. 4 high Not Available [facility] (Lab) [address] [place], [address], 12/05/2022 19:35:58 12/06/19 23 12/05/2022 COMPR EHENS DEVORAH METAB OLIC PANEL globulin 3.2 g/dL 2.6-4. 2 Not Available [facility] (Lab) [address] [place], [address], 12/05/2022 19:35:58 12/06/19 23 12/05/2022 COMPR EHENS DEVORAH METAB OLIC PANEL A/G ratio 1.6 ratio 1.0-2. 0 Not Available [facility] (Lab) [address] [place], [address], 12/05/2022 19:35:58 05/15/2005/15/2023 CBC/C OMPLE TE BLD COUNT W/DIF F white blood cells 7.9 x10'3 /uL 4.2-10 .8 Not Available [facility] (Lab) [address] [place], [address], 05/15/2023 18:28:40 05/15/2005/15/2023 CBC/C OMPLE TE BLD COUNT W/DIF F red blood cells 5.09 x10'6 /uL 4.10-5 .80 Not Available [facility] (Lab) [address] [facility] [place], [address], 05/15/2023 18:28:40 05/15/2005/15/2023 CBC/C OMPLE TE BLD COUNT W/DIF F hemoglobin 16.3 g/dL 13.2-1 7.0 Not Available [facility] (Lab) [address] [place], [address], 05/15/2023 18:28:40 05/15/2005/15/2023 CBC/C OMPLE TE BLD COUNT W/DIF F hematocrit 46.9 % 39.3-5 0.0 Not Available [facility] (Lab) [address] [place], [address], 05/15/2023 18:28:40 05/15/2005/15/2023 CBC/C OMPLE TE BLD COUNT W/DIF F mean red cell volume 92.1 fL 80.0-9 7.0 Not Available [facility] (Lab) [address] [place], [address], 05/15/2023 18:28:40 05/15/2005/15/2023 CBC/C OMPLE TE BLD COUNT W/DIF F mean red cell hemoglobin 32.0 pg 27.0-3 3.0 Not Available [facility] (Lab) [address] [facility] [place], [address], 05/15/2023 18:28:40 05/15/2005/15/2023 CBC/C OMPLE TE BLD COUNT W/DIF F mean RBC HGB concentratio n 34.8 g/dL 31.0-3 6.0 Not Available [facility] (Lab) [address] [place], [address], 05/15/2023 18:28:40 05/15/2005/15/2023 CBC/C OMPLE TE BLD COUNT W/DIF F red cell distribution width 13.2 % 11.8-1 5.5 Not Available [facility] (Lab) [address] [place], [address], 05/15/2023 18:28:40 05/15/2005/15/2023 CBC/C OMPLE TE BLD COUNT W/DIF F platelets 285 x10'3 /uL 150-40 0 Not Available [facility] (Lab) [address] [place], [address], 05/15/2023 18:28:40 05/15/2005/15/2023 CBC/C OMPLE TE BLD COUNT W/DIF F mean platelet volume 11.0 fL 9.0-12 .4 Not Available [facility] (Lab) [address] [place], [address], 05/15/2023 18:28:40 05/15/2005/15/2023 CBC/C OMPLE TE BLD COUNT W/DIF F neutrophils 65.2 % 39.0-7 2.0 Not Available [facility] (Lab) [address] [place], [address], 05/15/2023 18:28:40 05/15/20 23 05/15/2023 CBC/C OMPLE TE BLD COUNT W/DIF F lymphocytes 24.4 % 16.0-4 7.0 Not Available [facility] (Lab) [address] [place], [address], 05/15/2023 18:28:40 05/15/2005/15/2023 CBC/C OMPLE TE BLD COUNT W/DIF F monocytes 7.6 % 5.0-12 .0 Not Available [facility] (Lab) [address] [place], [address], 05/15/2023 18:28:40 05/15/2005/15/2023 CBC/C OMPLE TE BLD COUNT W/DIF F eosinophils 1.3 % 1.0-7. 0 Not Available [facility] (Lab) [address] [place], [address], 05/15/2023 18:28:40 05/15/2005/15/2023 CBC/C OMPLE TE BLD COUNT W/DIF F basophils 1.1 % 0.0-2. 0 Not Available [facility] (Lab) [address] [place], [address], 05/15/2023 18:28:40 05/15/2005/15/2023 CBC/C OMPLE TE BLD COUNT W/DIF F immature granulocytes 0.4 % 0.00-0 .50 Not Available [facility] (Lab) [address] [place], [address], 05/15/2023 18:28:40 05/15/2005/15/2023 CBC/C OMPLE TE BLD COUNT W/DIF F neutrophils, absolute count 5.14 x10'3 /uL 1.5-8. 0 Not Available [facility] (Lab) [address] [place], [address], 05/15/2023 18:28:40 05/15/20 23 05/15/2023 CBC/C OMPLE TE BLD COUNT W/DIF F lymphocytes, absolute count 1.92 x10'3 /uL 1.07-3 .43 Not Available [facility] (Lab) [address] [place], [address], 05/15/2023 18:28:40 05/15/2005/15/2023 CBC/C OMPLE TE BLD COUNT W/DIF F monocytes, absolute count 0.60 x10'3 /uL 0.29-0 .99 Not Available [facility] (Lab) [address] [place], [address], 05/15/2023 18:28:40 05/15/2005/15/2023 CBC/C OMPLE TE BLD COUNT W/DIF F eosinophils, absolute count 0.10 x10'3 /uL 0.02-0 .53 Not Available [facility] (Lab) [address] [place], [address], 05/15/2023 18:28:40 05/15/2005/15/2023 CBC/C OMPLE TE BLD COUNT W/DIF F basophils, absolute count 0.09 x10'3 /uL 0.01-0 .08 high Not Available [facility] (Lab) [address] [place], [address], 05/15/2023 18:28:40 05/15/2005/15/2023 CBC/C OMPLE TE BLD COUNT W/DIF F immature granulocytes ,absolute 0.03 x10'3 /uL 0.00-0 .05 Not Available [facility] (Lab) [address] [place], [address], 05/15/2023 18:28:40 05/15/2005/15/2023 CBC/C OMPLE TE BLD COUNT W/DIF F nucleated red blood cells 0.0 % -0 Not Available [facility] (Lab) [address] [place], [address], 05/15/2023 18:28:40 05/15/2005/15/2023 CBC/C OMPLE TE BLD COUNT W/DIF F NRBC# 0.00 x10'3 /uL Not Available [facility] (Lab) [address] [place], [address], 05/15/2023 18:28:40 05/15/20 23 05/15/2023 LIPID PANEL cholesterol 94 mg/dL 140-19 9 low NIH JESS NSUS RECOM MENDA TION FOR MARCIN STERO L: ADULT CHILD LOW RISK: <200 <170 BORDE RLINE : <200- 239 ----- HIGH RISK: >240 >200 Not Available [facility] (Lab) [address] [place] [address], [address], 05/15/2023 18:45:29 05/15/20 23 05/15/2023 LIPID PANEL triglyceride s 132 mg/dL 0-150 NIH JESS NSUS REPOR T RECOM MENDA TION FOR TRIGL YCERI MARI: ADULT CHILD LOW RISK: <150 ----- BODER LINE: 150-1 99 ----- HIGH RISK: >200 ----- Not Available [facility] (Lab) [address] [place] [address], [address], 05/15/2023 18:45:29 05/15/20 23 05/15/2023 LIPID PANEL HDL cholesterol 32 mg/dL 40- low Not Available [facility] (Lab) [address] [place] [address], [address], 05/15/2023 18:45:29 05/15/20 23 05/15/2023 LIPID PANEL LDL cholesterol, calculated 36 mg/dL 0-130 NIH JESS NSUS REPOR T RECOM MENDA TIONS FOR LDL: ADULT CHILD LOW RISK <130 <110 (OPTI MAL LDL) <100 ----- BORDE RLINE : 130-1 59 ----- HIGH RISK: >160 >130 A TRIGL YCERI DE RESUL T >400 INVAL IDATE S THE CALCU LATIO N FOR LDL FRACT IONAT ION - THE LDL RESUL T WILL NOT BE REPOR STEFFANY. Not Available [facility] (Lab) [address] [place], [address], 05/15/2023 18:45:29 05/15/2005/15/2023 COMPR EHENS DEVORAH METAB OLIC PANEL sodium 140 mmol/ L 137-[address] [facility] (Lab) [address] [place], [address], 05/15/2023 18:45:34 05/15/2005/15/2023 COMPR EHENS DEVORAH METAB OLIC PANEL potassium 4.3 mmol/ L 3.5-5. [address] [facility] (Lab) [address] [place], [address], 05/15/2023 18:45:34 05/15/2005/15/2023 COMPR EHENS DEVORAH METAB OLIC PANEL chloride 103 mmol/ L 98-[address] [facility] (Lab) [address] [place], [address], 05/15/2023 18:45:34 05/15/20 23 05/15/2023 COMPR EHENS DEVORAH METAB OLIC PANEL carbon dioxide 29 mmol/ L 22-[address] [facility] (Lab) [address] [place], [address], 05/15/2023 18:45:34 05/15/2005/15/2023 COMPR EHENS DEVORAH METAB OLIC PANEL anion gap 12.3 mmol/ L 14-[address] [facility] (Lab) [address] [place], [address], 05/15/2023 18:45:34 05/15/20 23 05/15/2023 COMPR EHENS DEVORAH METAB OLIC PANEL glucose 82 mg/dL 70-99 Not Available [facility] (Lab) [address] [place], [address], 05/15/2023 18:45:34 05/15/2005/15/2023 COMPR EHENS DEVORAH METAB OLIC PANEL BUN 12 mg/dL 8-19 Not Available [facility] (Lab) [address] [place], [address], 05/15/2023 18:45:34 05/15/20 23 05/15/2023 COMPR EHENS DEVORAH METAB OLIC PANEL creatinine 0.89 mg/dL 0.66-1 .25 Not Available [facility] (Lab) [address] [place], [address], 05/15/2023 18:45:34 05/15/2005/15/2023 COMPR EHENS DEVORAH METAB OLIC PANEL GFR >60 Refer ence Range : Talala ge GFR Healt hy Adult : >60 mL/mi n/1.7 3 m2 Chron ic Kidne y Disea se: 15-60 mL/mi n/1.7 3 m2 Kidne y Failu re: <15/m L/min /1.73 m2 www.n iddk. nih.g ov The MDRD study equat ion has not been valid ated in child tye <18 years of age; pregn ant women ; the elder ly >85 years of age; or in some racia l or ethni c subgr oups, such as ne nics. Outsi de the valid ated wesley eters , estim ated GFR is less accur ate, requi ring clini mike judgm ent on a case- by-ca se basis . Clini mike inter preta tion for other races and ages must be made by the clini sander. The MDRD study equat ion has not been valid ated for the evalu ation of serum creat inine relat ed to nutri andrea l statu s or medic ation usage . For perso ns <18 years of age, a pedia tric GFR calcu lator is avail able on the F websi te: https :[email or web address] w.nu guerray.o rg/pr ofess ional s/kdo qi/gf r_cal culat or Not Available [facility] (Lab) [address] [place], [address], 05/15/2023 18:45:34 05/15/2005/15/2023 COMPR EHENS DEVORAH METAB OLIC PANEL alkaline phosphatase 71 U/L 38-126 Not Available [facility] (Lab) [address] [place], [address], 05/15/2023 18:45:34 05/15/2005/15/2023 COMPR EHENS DEVORAH METAB OLIC PANEL alanine aminotransfe rase 21 U/L 0-50 Not Available [facility] (Lab) [address] [facility] [place], [address], 05/15/2023 18:45:34 05/15/2005/15/2023 COMPR EHENS DEVORAH METAB OLIC PANEL aspartate aminotransfe rase 22 U/L 15-46 Not Available [facility] (Lab) [address] [place], [address], 05/15/2023 18:45:34 05/15/20 23 05/15/2023 COMPR EHENS DEVORAH METAB OLIC PANEL bilirubin, total 1.60 mg/dL 0.20-1 .30 high Not Available [facility] (Lab) [address] [place], [address], 05/15/2023 18:45:34 05/15/2005/15/2023 COMPR EHENS DEVORAH METAB OLIC PANEL calcium 9.3 mg/dL 8.4-10 .2 Not Available [facility] (Lab) [address] [facility] [place], [address], 05/15/2023 18:45:34 05/15/20 23 05/15/2023 COMPR EHENS DEVORAH METAB OLIC PANEL total protein 7.1 g/dL 6.3-8. 2 Not Available [facility] (Lab) [address] [place], [address], 05/15/2023 18:45:34 05/15/20 23 05/15/2023 COMPR EHENS DEVORAH METAB OLIC PANEL albumin 4.4 g/dL 3.0-4. 4 Not Available [facility] (Lab) [address] [place], [address], 05/15/2023 18:45:34 05/15/20 23 05/15/2023 COMPR EHENS DEVORAH METAB OLIC PANEL globulin 2.7 g/dL 2.6-4. 2 Not Available [facility] (Lab) [address] [place], [address], 05/15/2023 18:45:34 05/15/2005/15/2023 COMPR EHENS DEVORAH METAB OLIC PANEL A/G ratio 1.6 ratio 1.0-2. 0 Not Available [facility] (Lab) [address] [place], [address], 05/15/2023 18:45:34 05/15/20 23 05/15/2023 PSA SCREE N PSA medicare screen 3.49 NG/mL 0.00-4 .00 Not Available [facility] (Lab) [address] [place], [address], 05/15/2023 19:38:15 11/21/19 23 11/20/2022 US, doppl er, arter ial No observ ation record ed. [email or web address] [facility] [address], [place], [address], 12/06/2022 14:45:01 12/06/19 23 12/05/2022 XR, foot [facility] [address] [place] [address] Patien t Name: RAMESH TOVAR Access ion #: [id number] Sex: M : 1960 5 Locati on: [facility] Attend ing Physic ro: ALICIA CARPIO Orderi ng Physic ro: ALICIA CARPIO Exam Date: 023 4:10 PM Exam Name: XR FOOT RT 3V+ Admitt ing Diagno sis(es ): RADIOL OGY REPORT - FINAL EXAM: XR FOOT RT 3V+ HISTOR Y: right foot pain 62-yea r-old male with right foot pain, no known injury . COMPAR CYNTHIA: Bilate ral foot radiog raphs dated 2021. TECHNI QUE: Three views of the right foot were perfor med. FINDIN GS: No acute fractu re or disloc ation are identi fied about the right foot. There is minima l osteoa rthrit is of the 1st MTP joint. There is medial promin ence of the navicu lar bone. IMPRES CHRISTO: No fractu re or acute osseou s abnorm ality of the right foot. Page 1 of 2 [facility] Name: RAMESH TOVAR Access ion #: [id number] Sex: M : 1960 3 Exam Date: 023 4:10 PM Exam Name: XR FOOT RT 3V+ Admitt ing Diagno sis(es ): Create d and electr onical ly signed by: Salvador desai MD Signed Date: 023 4:29 PM (CT) Dictat ed by: Salvador desai MD DD: 023 4:29 PM (CT) DT: 023 4:29 PM (CT) Page 2 of 2 [email or web address] [facility] (Imaging) [address] [place], [address], 12/07/2022 11:41:08 06/13/2006/13/2023 arter ial study , lower extre mity, compl ete No observ ation record ed. [facility] [address], [place], [address], 07/09/2023 12:08:57 06/17/2006/17/2023 , echo ardio gram No observ ation record ed. [facility] [address], [place], [address], 07/09/2023 12:16:30 09/10/19 25 09/10/2024 DEXA, axial skele ton [facility] [address], [place] [address] Patien t Name: RAMESH TOVAR Access ion #: [id number] Sex: M : 1960 2 Dictat ed By: Salvador desai Attend ing Physic ro: ALICIA CARPIO [facility] Physic ro: ALICIA CARPIO Exam Date: 2024 08:43 AM Exam Name: XR DEXA-H IPS PELVIS SPINE Admitt ing Diagno sis(es ): INDICA TION: long-t erm drug therap y DEXA SCAN: Techni que: DEXA scan of the lumbar spine and bilate ral hips was perfor med. Compar cynthia is made with DEXA scan dated 2020. BONE DENSIT Y REPORT : AP SPINE (L1-L4 ) : T Score: 0.3. BMD of the lumbar spine is decrea sed 0.2% since the prior study. LEFT FEMORA L NECK : T Score: -1.8 RT FEMORA L NECK : T Score: -2.1 LEFT HIP TOTAL : T Score: -0.6 RT HIP TOTAL : T Score: -1.0 TOTAL BILAT HIP AVG: T Score: -0.8. BMD of the hips is decrea sed 4.7% since the prior study. IMPRES CHRISTO: 1. Normal bone minera l densit y of the lumbar spine. 2. 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 ------ ------ ------ ------ ------ ------ ------ ------ ----- *FRAX versio n 3.08. Fractu re probab ility calcul ated for an untrea steffany patien t. Fractu re probab ility may be lower if the patien t has receiv ed treatm ent. Page 1 [facility] [address] [place] [address] [phone] Patien t Name: GUY RAMESH Access ion #: [id number] Sex: M : 1960 2 Dictat ed By: Salvador desai Attend ing Physic ro: BRISSA MARISCAL Orderi Physic ro: ALICIA CARPIO Exam Date: 2024 08:43 AM Exam Name: XR DEXA-H IPS PELVIS SPINE Admitt ing Diagno sis(es ): T-scor e: compar cynthia by standroni rd deviat ion (SD) to a young adult popula tion, matche d for sex and ethnic ity (used for postme nopaus al women and men >50 years) and classi fied by WHO criter ia. -1.0: normal <-1.0 to >-2.5: osteop enia -2.5: osteop orosis -2.5 plus fragil ity fractu re: severe osteop orosis Z-scor e: compar ed by SD to an age, sex, and ethnic ity popula tion (used for premen opausa l women, men <50 years, and childr en instea d of T-scor e WHO criter ia 4) <-2.0: below expect ed range/ low bone densit y for age, and a cause should be sought Electr onical ly Signed by: Salvador desai at 2024 14:19: 32 PM Page 2 INTERFACE [facility] (Imaging) [address] [place], [address], 09/10/2024 15:21:59 09/10/19 25 09/10/2024 LDCT, chest , for lung cance r scree karishma [facility] [address] [place], [place] [id number] [phone] Patien t Name: RAMESH TOVAR Access ion #: [id number] Sex: M : 1960 2 Dictat ed By: Salvador Negrete e Attend ing Physic ro: ALICIA CARPIO Orderi ng Physic ro: ALICIA CARPIO Exam Date: 2024 08:38 AM Exam Name: CT LOW DOSE CNCR SCREEN ING Admitt ing Diagno sis(es ): Proced ure: CT LOW DOSE CNCR SCREEN ING Reason for study/ Clinic al Histor y: nicoti ne depend ence 63-yea r-old male smoker with lung cancer screen ing. Compar cynthia Study: None availa ble Exam Date: 2024 08:38 AM TECHNI QUE: Multid etecto r CT of the chest was perfor med from the lung apices to the upper abdome n withou t the use of intrav enous contra ct. Axial, zamarripa l and sagitt al multip lanar reform ats were perfor med. Radiat ion Dose Inform ation: CT Dose: CTDI volume is 1.7 mGy. Dose-l ength produc t is 67.9 mGy*cm The dose indica tors for CT are the volume Comput ed Tomogr aphy (CT) Dose Index (CTDIv ol) and the Dose Length Produc t (DLP), and are measur ed in units of mGy and mGy-cm , respec tively . These indica tors are not patien t dose, but values genera steffany from the CT scanne r acquis ition factor s. The report includ es radiat ion exposu re data for exposu res receiv ed during this examin ation. FINDIN GS: No noncal cified pulmon shahzad nodule s are identi fied bilate rally. There is mild parase ptal emphys niels of the upper lobes. There is mild right lung depend ent atelec tasis. There is mild peribr onchia l thicke karishma. No pneumo thorax , pleura l effusi ons, pulmon shahzad edema, or consol idativ e infilt rates. The heart is not enlarg ed. There are zamarripa ry artery calcif icatio ns. There is a focal saccul ar aneury sm or pseudo aneury sm of the inferi or margin of the midpor tion of the aortic arch (image s 63-77, series 201; image 38, series 203) measur ing Page 1 [facility] [address] [place] [address] Patien t Name: RAMESH TOVAR ion #: [id number] Sex: M : 1960 2 Dictat ed By: Salvador desai Attend ing Physic ro: BRISSA MARISCAL Orderi ng Physic ro: ALICIA CARPIO Exam Date: 2024 08:38 AM Exam Name: CT LOW DOSE CNCR SCREEN ING Admitt ing Diagno sis(es ): 18 mm. There is ascend ing thorac ic aortic ectasi a measur ing up to 4.1 cm diamet er. The descen ding thorac ic aorta is normal in calibe r. There is a right subcla vian arteri al stent. No suspic ious medias tinal or axilla ry lympha denopa thy. There is mild bilate ral gyneco mastia . IMPRES CHRISTO: 1. No noncal cified pulmon shahzad nodule s are identi fied bilate rally. 2. 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 3. Zamarripa ry artery diseas e. 4. Saccul ar aneury sm versus pseudo aneury sm of the inferi or margin of the mid aortic arch measur es 18 mm. There is also ectasi a of the ascend ing thorac ic aorta measur ing up to 4.1 cm diamet er. 5. Postop erativ e change s of right subcla vian artery stent. LUNG RADS Catego ry 1, negati ve. Recomm end annual screen ing with LDCT Radiat ion optimi zation : All CT scans at this facili ty use at least one of these dose optimi zation techni ques: automa steffany exposu re contro l mA and/or kV adjust ment per patien t size (inclu mari target ed exams where dose is matche d to clinic al indica tion) or iterat devorah recons tructi on. Electr onical ly Signed by: Salvador desai at 2024 14:49: 42 PM Page 2 INTERFACE [facility] (Imaging) [address] [place], [address], 09/10/2024 15:52:02 Result Notes None recorded. Problems Name Problem SNOMED Code Status Onset Date Resolution Date Notes Provider Name and Address Organization Details Recorded Time Hyperlipid emia 10493857 Active Not Available [facility] 3 13:38:43 Peripheral arterial disease 414477990 Active 2021 Not Available [facility] 3 13:38:43 Epilepsy 61023264 Active Not Available [facility] 3 13:38:43 Seizure 22069830 Active Not Available [facility] 3 13:38:43 Pain in right foot 3115003269292 07 Active 2022 Not Available [facility] 3 13:38:43 Foot pain 50156927 Active 2022 Not Available [facility] 3 13:38:43 Peripheral arterial occlusive disease 590788751 Active 2022 Not Available [facility] 3 13:38:43 Problem Notes None recorded. Procedures Surgical History Date Name Laterality Status Provider Name and Address Organization Details Recorded Time Stent Placement completed Not Available [employer] 10/10/2022 05:55:56 femoral artery bypass completed Not Available [facility] 10/10/2022 05:55:56 Imaging Results Imaging Date Name Status LastModified by Organization Details LastModified Time 11/20/2022 US, doppler, arterial completed [email or web address] [facility] [address], [place], [address], 12/06/2022 14:45:01 12/05/2022 XR, foot completed [email or web address] [facility] (Imaging) [address] [place], [address], 12/07/2022 11:41:08 06/13/2023 arterial study, lower extremity, complete completed cyl [facility] [address], [place], [address], 07/09/2023 12:08:57 06/17/2023 US, echocardiogram completed [email or web address] [address], [place], [address], 07/09/2023 12:16:30 09/10/2024 DEXA, axial skeleton active INTERFACE [facility] (Imaging) [address] [place], [address], 09/10/2024 15:21:59 09/10/2024 LDCT, chest, for lung cancer screening active INTERFACE [facility] (Imaging) [address] [place], [address], 09/10/2024 15:52:02 Procedure Notes None recorded. Medical Equipment None Reported. Allergies Allergen ID Allergen Name Allergen Category Reaction Reaction Severity Criticality Documentation Date Start Date Code Code System Note Provider Name and Address Organization Details Recorded Time 16606 Product containin g penicilli n (product) medicatio n Not available Not available Not available 10/10/2022 21764 8001 SNOMED Not Available [facility] 06:09:31 Medications Name Sig Start Date Stop Date Status Note LastModified by Organization Details LastModified Time atorvastati n 40 mg tablet TAKE 1 TABLET BY MOUTH EVERY DAY active Not Available Not Available No t Available azithromyci n 250 mg tablet TAKE 2 TABLETS (500 MG) BY ORAL ROUTE ONCE DAILY FOR 1 DAY THEN 1 TABLET (250 MG) BY ORAL ROUTE ONCE DAILY FOR 4 DAYS active Not Available Not Available No t Available levetiracet am 500 mg tablet active Not Available Not Available Not Available hydrocodone 5 mg-acetamin ophen 325 mg tablet TAKE 1 TABLET BY MOUTH EVERY 6 HOURS NEEDED 09/05 completed Not Available Not Available Not Available fluorouraci l 5 % topical cream 05/09 completed Not Available Not Available Not Available clopidogrel 75 mg tablet TAKE 1 TABLET BY MOUTH EVERY DAY active Not Available Not Available No t Available amlodipine 5 mg tablet TAKE 1 TABLET BY MOUTH EVERY DAY 09/05 completed Not Available Not Available Not Available tramadol 50 mg tablet TAKE 1 TABLET 3 TIMES A DAY BY ORAL ROUTE NEEDED. 01/02 completed Not Available Not Available Not Available simvastatin 20 mg tablet TAKE 1 TABLET BY MOUTH EVERY DAY active Not Available Not Available No t Available mupirocin calcium 2 % topical cream 05/09 completed Not Available Not Available Not Available diflorasone 0.05 % topical cream active Not Available Not Available Not Available levetiracet am 750 mg tablet TAKE 1 (ONE) TABLET BY MOUTH 2 TIMES DAILY active Not Available Not Available No t Available gabapentin 100 mg capsule TAKE 1 CAP NIGHTLY X7 DAYS, 1 CAP TWICE DAILY X7 DAYS THEN 1 CAP 3 TIMES DAILY active Not Available Not Available No t Available methylpredn isolone 4 mg tablets in a dose pack TAKE 6 TABLETS ON DAY 1 DIRECTED ON PACKAGE AND DECREASE BY 1 TAB EACH DAY FOR A TOTAL OF 6 DAYS 01/02 completed Not Available Not Available Not Available fluticasone propionate 50 mcg/actuati on nasal spray,suspe nsion Inhale 2 sprays every day by intranasa l route. active Not Available Not Available No t Available Adult Low Dose Aspirin 81 mg tablet,danny yed release Take 1 tablet every day by oral route. 2014 active Not Available Not Available Not Avai lable duloxetine 30 mg capsule,del ayed release TAKE 1 CAPSULE BY MOUTH EVERY DAY FOR 90 DAYS active Not Available Not Available No t Available Carlita-D 24 Hour 180 mg-240 mg tablet,exte nded release Take 1 tablet every day by oral route. 02/23 completed Not Available Not Available Not Available Vitamin C 2020 active Not Available Not Available Not Avai lable Fish Oil 2020 active Not Available Not Available Not Avai lable diclofenac 1 % topical gel APPLY GEL TO THE TOPS AND BOTTOMS OF THE RIGHT FOOT UP TO 4 TIMES A DAY NEEDED active Not Available Not Available No t Available Xarelto 2.5 mg tablet TAKE 1 TABLET BY MOUTH TWICE A DAY active Not Available Not Available No t Available Fluzone Quad (PF) 60 mcg (15 mcg x 4)/0.5 mL IM syringe active Not Available Not Available N ot Available Flucelvax Quad (PF) 60 mcg (15 mcg x 4)/0.5 mL IM syringe PHARMACY ADMINIST[facility] 03/27 completed Not Available Not Available Not Available Neuriva Original otc, takes daily 05/09 completed Not Available Not Available Not Available Vitals Date Recorded Body mass index (BMI) Body height Heart rate Body temperature Body weight Systolic blood pressure Diastolic blood pressure Provider Name and Address Organization Details Last Updated DateTime 3 29.8 kg/m2 182.88 cm 72 /min 98 [degF] 57327.3 2 g 124 mm[Hg] 78 mm[Hg] Not Available [facility] 3 06:00:15 Date Recorded Body height Body mass index (BMI) Body weight Body temperature Heart rate Systolic blood pressure Diastolic blood pressure Provider Name and Address Organization Details Last Updated DateTime 3 182.88 cm 29.6 kg/m2 29510.1 4 g 97.4 [degF] 62 /min 120 mm[Hg] 88 mm[Hg] NICOLE Ballard [facility] [employer] [facility] 3 15:45:17 Date Recorded Body height Body mass index (BMI) Body weight Body temperature Heart rate Systolic blood pressure Diastolic blood pressure Provider Name and Address Organization Details Last Updated DateTime 3 182.88 cm 29.4 kg/m2 01577.5 4 g 97.7 [degF] 83 /min 118 mm[Hg] 80 mm[Hg] NICOLE Ballard [place] [employer] [facility] [employer] [facility] 3 11:06:25 Date Recorded Body height Body mass index (BMI) Body weight Body temperature Heart rate Systolic blood pressure Diastolic blood pressure Provider Name and Address Organization Details Last Updated DateTime 3 182.88 cm 29.3 kg/m2 79323.9 5 g 98.4 [degF] 92 /min 136 mm[Hg] 84 mm[Hg] Argelia dove RN [facility] [employer] [facility] 3 15:34:56 Date Recorded Body height Body mass index (BMI) Body weight Body temperature Heart rate Oxygen saturation Oxygen saturation in Arterial blood by Pulse oximetry Systolic blood pressure Diastolic blood pressure Provider Name and Address Organization Details Last Updated DateTime 4 182.88 cm 29.4 kg/m2 24966.5 4 g 96.7 [degF] 75 /min 99 % 99 % 128 mm[Hg] 86 mm[Hg] Cindy guerrero CMA [place] [facility] 4 16:39:49 Social History Question Answer Notes LastModified by Organization Details LastModified Time Tobacco Smoking Status Current Every Day Smoker Not Available [employer] 10/10/2022 05:54:42 Do You Have An Advance Directive? No MIGRATION.0301 [id number] Information not available 10/10/2022 What Is Your Level Of Alcohol Consumption? Occasional MIGRATION.0301 095204 Information not available 10/10/2022 What Is Your Level Of Caffeine Consumption? Moderate MIGRATION.0301 804181 Information not available 10/10/2022 In The 14 Days Before Symptom Onset, Have You Had Close Contact With A Laboratory-confi rmed COVID-19 While That Case Was Ill? No MIGRATION.0301 641014 Information not available 10/10/2022 In The 14 Days Before Symptom Onset, Have You Had Close Contact With A Person Who Is Under Investigation For COVID-19 While That Person Was Ill? No MIGRATION.0301 [id number] Information not available 10/10/2022 Are You Currently Employed? No Information not available 05/15/2023 What Type Of Diet Are You Following? REGULAR MIGRATION.030 [id number] Information not available 10/10/2022 What Is The Highest Grade Or Level Of School You Have Completed Or The Highest Degree You Have Received? [id number] MIGRATION.030 741465 Information not available 10/10/2022 Have There Been Any Changes To Your Family Or Social Situation? No MIGRATION.0301 097285 Information not available 10/10/2022 What Is The Fluoride Status Of Your Home? Fluoridated MIGRATION.0301 112386 Information not available 10/10/2022 Do You Use Insect Repellent Routinely? No MIGRATION.0301 325800 Information not available 10/10/2022 Where Do You Live? [place] MIGRATION.0301 515024 Information not available 10/10/2022 Do You Have A Medical Power Of Photography Coordinator? No MIGRATION.0301 137783 Information not available 10/10/2022 What Was The Date Of Your Most Recent Tobacco Screening? 05/15/2023 Information not available 05/15/2023 What Is Your Current Pack Years? 30ormorepackyears MIGRATION.0301 625066 Information not available 10/10/2022 Have You Ever Been Counseled For Unhealthy Alcohol Use? No MIGRATION.0301 218428 Information not available 10/10/2022 Do You Have Any Pets? Yes MIGRATION.0301 596272 Information not available 10/10/2022 What Is Your Relationship Status? MIGRATION.0301 877711 Information not available 10/10/2022 Do You Use Your Seat Belt Or Car Seat Routinely? Yes MIGRATION.0301 988247 Information not available 10/10/2022 Do You Have Smoke And Carbon Monoxide Detectors In Your Home? Yes MIGRATION.0301 915852 Information not available 10/10/2022 At What Age Did You Start Smoking Tobacco? 11 MIGRATION.030 173300 Information not available 10/10/2022 Are You Passively Exposed To Smoke? No MIGRATION.0301 593239 Information not available 10/10/2022 Are There Any Smokers In Your House? Yes Pt Smokes MIGRATION.030 977146 Information not available 10/10/2022 How Much Tobacco Do You Smoke? 0.5 PPD [email or web address] Information not available 12/05/2022 What Types Of Sporting Activities Do You Participate In? None MIGRATION.0301 737789 Information not available 10/10/2022 Do You Feel Stressed (tense, Restless, Nervous, Or Anxious, Or Unable To Sleep At Night)? [id number] MIGRATION.0301 835828 Information not available 10/10/2022 Do You Use Any Illicit Or Recreational Drugs? No MIGRATION.0301 879362 Information not available 10/10/2022 Do You Use Sunscreen Routinely? Yes MIGRATION.0301 855173 Information not available 10/10/2022 How Many Years Have You Smoked Tobacco? 49 MIGRATION.0301 308116 Information not available 10/10/2022 Have You Recently Traveled Abroad? No MIGRATION.0301 090767 Information not available 10/10/2022 Do You Have Any Dietary Restrictions? No MIGRATION.0301 604015 Information not available 10/10/2022 Do You Or Have You Ever Used Any Other Forms Of Tobacco Or Nicotine? No MIGRATION.0301 336046 Information not available 10/10/2022 Sex: Male Functional Status Question Answer Note LastModified by Organizat ion Details LastModified Time What is your exercise level? None MIGRATION.[id number] Information not available 10/10/2022 Mental Status None recorded. Family History Relationship Description Onset Age of this Age Resolved Age Notes LastModified by Organization Details LastModified Time Mother Heart disease MIGRATION.108 [id number] Not available 10/10/2022 05:56:00 Father Heart disease 73 MIGRATION.388 [id number] Not available 10/10/2022 05:56:00 Medical History Condition Response NERVE DISEASE N BLINDNESS N RHEUMATIC FEVER N KIDNEY STONES N BLADDER PROBLEMS N MRSA N OTHER # 1 N POLIO N LUNG DISEASE/DISORDER N HISTORY OF DRUG ABUSE N RADIATION / CHEMOTHERAPY N COPD N Other # 2 N BLOOD DISEASES N EAR OR HEARING PROBLEMS N MUMPS N SHINGLES N BOWEL PROBLEMS N DEPRESSION (INCLUDING POST ) N STROKE/TIA Y ULCERS N BENIGN PROSTATIC HYPERPLASIA N MEASLES N HYPOTENSION N MYOCARDIAL INFARCTION N OBESITY N GERD/NAUSEA N ANEURYSM N URINARY/BLADDER/KIDNEY PROBLEMS N CORONARY ARTERY DISEASE (CAD) Y ADDICTION CONCERNS N ENDOMETRIOSIS N Impotence N USE OF BLOOD THINNERS N SKIN PROBLEMS N GASTROINTESTINAL DISORDER N PERIPHERAL VASCULAR DISEASE N MUSCLE,JOINT OR BONE PROBLEMS N GASTROINTESTINAL BLEEDING N BLOOD CLOTS N ASTHMA N CATARACTS N ERECTILE DYSFUNCTION N VARICOSITIES N GI PROBLEMS N Low Testosterone N INFERTILITY N AIDS/HIV N CHEMOTHERAPY / RADIATION N LIVER DISEASE N MALE HYPOGONADISM N HYPERTENSION Y Deficiency N TOURETTE'S N ANXIETY DISORDER N BLOOD TRANSFUSION N ANEMIA/BLOOD DISORDER N CHRONIC EAR INFECTIONS N BRONCHITIS N TUBERCULOSIS N GLAUCOMA N FOOT PROBLEM N DIVERTICULITIS N CHICKENPOX N SLEEP APNEA N INFECTIOUS DISEASE N HEART ARRHYTHMIA N PROSTATE N INSOMNIA N HIGH CHOLESTEROL / HYPERLIPIDEMIA Y HYPERTHYROIDISM N EYE PROBLEMS N EDEMA N CHRONIC PAIN SYNDROME N HYPOTHYROIDISM N CAROTID BLOCKAGE Y CONSTIPATION N BACK / NECK PROBLEMS N HAVE YOU BEEN HOSPITALIZED OR SEEN IN [facility] IN THE PAST YEAR ? N ATHEROSCLEROSIS N BREAST PROBLEMS N DIALYSIS N ECZEMA N OSTEOPOROSIS N ARTHRITIS N APPENDICITIS N DIABETES, TYPE N BAD TEETH N ENT N HEARTBURN / REFLUX N AUTISM SPECTRUM DISORDER (ASD) N HEPATITIS / LIVER DISEASE N GOUT N SLEEP DISORDER N ALZHEIMER'S DISEASE N Brain Problems Y HERPES N DEMENTIA N HEADACHES/MIGRAINES N SEIZURES/EPILEPSY Y VASCULAR DISEASE Y PACEMAKER N Blood Disorder N DIZZINESS N HEART DISEASE/HEART PROBLEMS N KIDNEY DISEASE N MULTIPLE SCLEROSIS N CARDIAC ARRHYTHMIA N CANCER: SPECIFY N ATRIAL FIBRILLATION N Gall Stones N PULMONARY EMBOLISM N AUTOIMMUNE DISEASE N Immunizations Vaccine Type Date Status Note Provider Nam e and Address Organization Details Recorded Time influenza, unspecified formulation 3 completed Alison El RMRoni paez, [facility] [employer] [facility] 05/30/2023 14:00:46 SARS-COV-2 (COVID-19) vaccine, UNSPECIFIED 3 completed Alison El RMA null, [facility] [employer] [facility] 05/30/2023 14:00:56 Influenza, split virus, trivalent, PF 3 completed Not Available [facility] 05/16/2023 05:51:13 COVID-19, mRNA, LNP-S, PF, 100 mcg/0.5mL dose or 50 mcg/0.25mL dose 1 completed Not Available [facility] 05/16/2023 05:51:13 COVID-19, mRNA, LNP-S, PF, 100 mcg/0.5mL dose or 50 mcg/0.25mL dose 1 completed Not Available [facility] 05/16/2023 05:51:13 COVID-19, mRNA, LNP-S, PF, 100 mcg/0.5mL dose or 50 mcg/0.25mL dose 1 completed Not Available [facility] 05/16/2023 05:51:13 Influenza, MDCK, quadrivalent, PF 0 completed Not Available [facility] 05/16/2023 05:51:13 Influenza, split virus, quadrivalent, preservative 9 completed Not Available [facility] 05/16/2023 05:51:13 Influenza, split virus, quadrivalent, preservative 8 completed Not Available [facility] 05/16/2023 05:51:13 Influenza, split virus, trivalent, preservative 4 completed Not Available [facility] 05/16/2023 05:51:13 Past Encounters Encounter ID Performer Location Encounter Start Date Encounter Closed Date Diagnosis/Indication Diagnosis SNOMED-CT Code Diagnosis ICD10 Code Diagnosis Note [id number] Saulo Carpio MD [facility] Internal Med [place] [address] [facility], [facility] [address] [place] [address] 04/05/2021 00:00:00 04/05/2021 22:46:45 [id number] Saulo Carpio MD S_G Internal Med [facility] [address] [address] 08/28/2021 00:00:00 08/28/2021 21:52:08 [id number] Saulo Carpio MD S_[facility] Internal Med [facility] [address] [address] 10/04/2021 00:00:00 10/07/2021 22:31:22 [id number] Saulo Carpio MD S[facility] Internal Med [facility] [address] [address] 01/05/2022 00:00:00 01/05/2022 21:06:37 [id number] Saulo Carpio MD S[facility] Internal Med [place] [address] [address] 05/09/2022 00:00:00 06/03/2022 22:26:52 [id number] Saulo Carpio MD S_G Internal Med [facility] [address] [address] 09/05/2022 00:00:00 09/05/2022 11:43:02 [id number] Saulo Carpio MD S[facility] Internal Med [facility] [address] [address] 12/05/2022 15:15:42 12/05/2022 16:45:20 Pain in right foot 4264964208 14585 M79.671 [id number] Saulo Carpio MD S[facility] Internal Med [facility] [address] [address] 01/02/2023 10:44:48 01/02/2023 11:45:27 Foot pain 96472656 M79.756 [id number] Saulo Carpio MD S[facility] Internal Med [facility] [address] [address] 05/15/2023 15:22:52 05/15/2023 16:08:10 Hyperlipidemia 37356101 E78.5 Seizure 66461526 R56.9 Peripheral arterial occlusive disease 475280583 I73.9 Screening for malignant neoplasm of prostate 039701842 Z12.5 [id number] Saulo Carpio MD [facility] Internal Med [facility] [address] [place] [address] [place] [address] 09/04/2023 14:50:53 09/04/2023 17:26:27 Hyperlipidemia [id number] E78.5 Peripheral arterial occlusive disease [id number] I73.9 Seizure [id number] R56.9 Health Concerns Section Related Observation LastModified by Organization Detai ls LastModified Time None Recorded Concern Status LastModified by Organization Details LastModified Time None Recorded Advance Directives Directive N: Payers Encounter Date Sequence Insurance Name Policy Number Policy Muñoz Covered Member ID Muñoz Member ID Guarantor Name 12/05/2022 1 [employer] (MEDICARE REPLACEMENT PPO) [id number] 1 Ramesh Jimi Guy [id number] Ramesh Tovar 01/02/2023 1 [employer] (MEDICARE REPLACEMENT PPO) [id number] 1 Ramesh Krause Guy [id number] Ramesh Jimi Tovar 05/15/2023 1 [employer] (MEDICARE REPLACEMENT PPO) [id number] 1 Ramesh Krause Guy [id number] Ramesh Krause Guy 09/04/2023 1 [employer] (MEDICARE REPLACEMENT PPO) [id number] 1 Ramesh Krause Guy [id number] Ramesh Tovar Notes Date Note Type Note Provider Name and Address Organization Details Recorded Time 12/05/2022 text/html Right foot pain atraumatic saw his vascular doctor who did a B eyes and said everything was fine from a vascular stand Saulo Carpio MD [address], [address], [place], [address], [facility] [employer] [facility] 12/16/2022 15:00:39 01/02/2023 text/html x-ray negative f oot better out of tramadol not requiring any pain med Saulo Carpio MD [address], [address], [place], [address], [place] [facility] 01/02/2023 23:11:18 05/15/2023 text/html Seizure none peripheral arterial occlusive disease asymptomatic hyperlipidemia trying to follow low-fat diet continues to smoke Saulo Carpio MD [address], [place], [address], [facility] 05/15/2023 21:33:34 09/04/2023 text/html Seizure none peripheral arterial occlusive disease asymptomatic hyperlipidemia trying to follow low-fat diet continues to smoke Saulo Carpio MD [address], [place], [address], [facility] [facility] 09/11/2023 08:35:35
== END 2024-12-18 12:27 | disposition home or self-care (01) ==
PROVIDERS: PCP Internal Medicine; Visit Provider Urology
DX: C61 Malignant neoplasm of prostate (principal); K80.20 Calculus of gallbladder without cholecystitis without obstruction; G93.89 Other specified disorders of brain; I70.0 Atherosclerosis of aorta
CPT/HCPCS: 36415; 78815; A9596